=== PATIENT | female | born 1945 | race Two or more races ===

== ENCOUNTER 2021-06-07 13:20 | Inpatient (IN) | payer MEDICARE, OTHER ==
[~2021-06-07] VITALS: Ht 154.9 cm; Wt 90.9 kg
[2021-06-07] MEDS ORDERED: IV NS 0.9% 1,000 ML BAG IV ONE (14:00)
--- NOTE | 2021-06-07 14:00 | NUR ---
BIB [facility] AFTER SHE FELT DIZZY WHILE SHOPPING,C/O RIGHT ARM/SHOULDER PAIN 12/21. ALERT AND ORIENTED X4. DENIES SOB. RESPIRATION REGULAR AND UNLABORED. WILL CONTINUE TO MONITOR THE PATIENT.
[2021-06-07] MEDS ORDERED: FENTANYL PF 100MCG/2ML AMPUL IV ONE (14:30)
[2021-06-07] MEDS ORDERED: ACETAMINOPHEN ES 500 MG TABLET PO ONE (14:30)
[2021-06-07] MEDS ORDERED: FENTANYL PF 100MCG/2ML AMPUL ONE (14:31)
[2021-06-07 14:34] LABS: BASOPHILS % (AUTO) 0.5 % (0.0-2.0); EOSINOPHILS % (AUTO) 8.5 % (0.0-6.0); HEMATOCRIT 36 % (33-45); HEMOGLOBIN 12.2 g/dL (11.5-14.8); LYMPHOCYTES # (AUTO) 1.8 K/uL (0.8-4.8); LYMPHOCYTES % (AUTO) 22.6 % (20.0-44.0); MEAN CORPUSCULAR HGB CONC 34 g/dl (31.0-36.0); MEAN CORPUSCULAR VOLUME 96 fL (82-100); MONOCYTES # (AUTO) 0.6 K/uL (0.1-1.30); MONOCYTES % (AUTO) 7.1 % (2.0-12.0); NEUTROPHILS % (AUTO) 61.3 % (43.0-81.0); PLATELET COUNT (AUTO) 144 K/uL (150-450); RED BLOOD CELL COUNT(AUTO) 3.79 MIL/uL (4.0-5.2); WHITE BLOOD COUNT (AUTO) 8.1 K/uL (4.3-11.0)
[2021-06-07] MEDS ORDERED: ACETAMINOPHEN ES 500 MG TABLET ONE (14:35)
[2021-06-07 14:47] LABS: CALCIUM, SERUM 8.6 mg/dL (8.5-10.1); CARBON DIOXIDE 28 mmol/L (21-32); CHLORIDE 105 mmol/L (98-107); CREATININE 1.2 mg/dL (0.6-1.3); GLUCOSE 225 mg/dL (74-106); POTASSIUM 4.5 mmol/L (3.5-5.1); SODIUM SERUM 139 mmol/L (136-145); UREA NITROGEN, BLOOD 21 mg/dL (7-18)
--- NOTE | 2021-06-07 15:01 | NUR ---
DAUGHTER CALLED. LEFT CONTACT # [phone]
[2021-06-07 15:03] LABS: ALANINE AMINOTRANSFERASE 25 U/L (12-78); ALBUMIN 3.3 g/dL (3.4-5.0); ALKALINE PHOSPHATASE 51 U/L (46-116); ASPARTATE AMINOTRANSFERASE 18 U/L (15-37); BILIRUBIN,DIRECT 0.1 mg/dL (0.0-0.2); BILIRUBIN,TOTAL 0.4 mg/dL (0.2-1.0); TOTAL PROTEIN, SERUM 7.7 g/dL (6.4-8.2)
[2021-06-07] MEDS ORDERED: ALBU8.5H8 INH (15:08)
[2021-06-07] MEDS ORDERED: LORA10TA7 PO (15:08)
[2021-06-07] MEDS ORDERED: GABA-532 PO (15:08)
[2021-06-07] MEDS ORDERED: FLUT12AE5 INH (15:08)
[2021-06-07] MEDS ORDERED: SIMV-49 PO (15:08)
[2021-06-07] MEDS ORDERED: DOCU-270 PO (15:08)
[2021-06-07] MEDS ORDERED: ASPI-1420 PO (15:08)
[2021-06-07] MEDS ORDERED: FURO20TA4 PO (15:08)
[2021-06-07] MEDS ORDERED: POLY15DR40 EACHEYE (15:08)
[2021-06-07] MEDS ORDERED: INSU100I26 SQ (15:08)
[2021-06-07] MEDS ORDERED: LISI40TA13 PO (15:08)
[2021-06-07] MEDS ORDERED: INSU100I4 SQ (15:08)
[2021-06-07] MEDS ORDERED: CHLO25TA2 PO (15:08)
[2021-06-07] MEDS ORDERED: OMEP20CA15 PO (15:08)
[2021-06-07] MEDS ORDERED: MORPHINE SULFATE INJ 4 MG/ML DISP.SYRIN ONE (15:15)
[2021-06-07] MEDS ORDERED: MORPHINE SULFATE INJ 2 MG/ML DISP.SYRIN IV ONE (15:30)
--- NOTE | 2021-06-07 16:43 | NUR ---
COVID ANTIGEN SWAB DONE AND SENT TO THE LAB
[2021-06-07] MEDS ORDERED: ALBUTEROL SULFATE INH 18 GM HFA.AER.AD NEB PRN (18:00)
[2021-06-07] MEDS ORDERED: LORATADINE 10 MG TABLET PO PRN (18:00)
[2021-06-07] MEDS ORDERED: DEXTROSE 50%-WATER 50 ML DISP.SYRIN IV PRN (18:00)
[2021-06-07] MEDS ORDERED: hydrALAZINE HCL IV 20 MG VIAL IV PRN (18:00)
[2021-06-07] MEDS ORDERED: POLYVINYL ALCOHOL 15 ML BOTTLE EACHEYE PRN (18:00)
[2021-06-07] MEDS ORDERED: ONDANSETRON HCL/PF 4 MG/2 ML VIAL IVP PRN (18:00)
[2021-06-07] MEDS ORDERED: Z GUARD REMEDY 4 OZ OINT TP PRN (18:00)
[2021-06-07] MEDS ORDERED: *INSULIN REGULAR(HUMULIN R)HUM 100 UNIT/ML VIAL SQ PRN (18:00)
[2021-06-07] MEDS ORDERED: INSULIN REGULAR, HUMAN 100 UNIT/ML 3 ML VIAL SQ PRN (18:00)
[2021-06-07] MEDS ORDERED: INSULIN GLARGINE,BASAGLAR 100 UNIT/ML INSULN.PEN SQ SCH (18:00)
--- NOTE | 2021-06-07 19:06 | NUR ---
report given to nurse Mitchell for gregor
[2021-06-07] MEDS: IV NS 0.9% 1,000 ML IV PRN (19:43)
--- NOTE | 2021-06-07 19:49 | NUR ---
TAKEN TO CT
[2021-06-07] MEDS ORDERED: MORPHINE SULFATE INJ 2 MG/ML DISP.SYRIN ONE (19:50)
[2021-06-07] MEDS: MORPHINE SULFATE INJ 2 MG/ML DISP.SYRIN IV PRN (19:56)
--- NOTE | 2021-06-07 20:09 | NUR ---
RETURNED FROM CT
--- NOTE | 2021-06-07 21:14 | NUR ---
BED 907-1
--- NOTE | 2021-06-07 21:28 | NUR ---
us at bedside
--- NOTE | 2021-06-07 21:42 | NUR ---
attempted to give report, kept on hold
[2021-06-07] MEDS ORDERED: hydrALAZINE HCL IV 20 MG VIAL ONE (21:44)
[2021-06-07] MEDS ORDERED: GABAPENTIN 300 MG CAPSULE ONE (21:44)
[2021-06-07] MEDS ORDERED: ACETAMINOPHEN 325 MG TABLET ONE (21:44)
--- NOTE | 2021-06-07 21:48 | NUR ---
REPORT GIVEN TO INA
[2021-06-07] MEDS: ACETAMINOPHEN 325 MG TABLET PO PRN (21:55)
[2021-06-07] MEDS: GABAPENTIN 100 MG CAPSULE PO SCH (21:55)
[2021-06-07 22:15] VITALS: BP 167/59
[2021-06-07] MEDS: BLOOD SUGAR DIAGNOSTIC 1 EACH STRIP VI SCH (23:33)
[2021-06-08] VITALS (8 sets, daily range): BP systolic 112–170; BP diastolic 46–60
--- NOTE | 2021-06-08 01:00 | NUR ---
After admitting patient and changing linens, clothes etc. patient became nauseous and ended up vomiting x2, partially digested food. PRN Zofran given with some relief. Denies abdominal pain is not tender upon palpation, bowel sounds present.
--- NOTE | 2021-06-08 02:49 | NUR ---
SPORTS EQUIPMENT REPAIRER NOTE Patient is A&Ox4, japanese speaking but able to speak Guinean well. States that her only complaint at this moment is her R shoulder pain where fracture was found. Patient can move extremities evenly. Patient states she can usually walk for 5-10 minutes but doesn't know if she can get up due to pain in R shoulder. Will use bedpan for now, Lung sounds clear, bowel sounds present, Heart rate and rhythm regular, no edema. Only skin issues are abrasions to shay. knees. Patient placed on tele monitor. VSS. Oriented patient to unit protocols, bed controls, and call light. Will continue to monitor. Addendum: 06/08/21 at 0257 by DAVID SIGALA RN Patient arrived to unit at 2215 accompanied by 2 staff members.
[2021-06-08] MEDS: IV NS 0.9% 1,000 ML IV PRN ×2 (06:16→22:50)
--- NOTE | 2021-06-08 06:44 | NUR ---
Patient's emesis subsided and B/P back to WNL 122/56. Now feels good again except R shoulder pain when repositioning, but overall feeling better. Ns running at 75cc/hr to LFA #20G intact and patent. Has been SR on monitor overnight 80s, 90s.
[2021-06-08] MEDS: BLOOD SUGAR DIAGNOSTIC 1 EACH STRIP VI SCH (07:05)
--- NOTE | 2021-06-08 07:19 | NUR ---
JAVA WEB USER INTERFACE DEVELOPER OPENING NOTES: RECEIVED PATIENT ON BED, AWAKE, A/O X4, NO S/S OF DISTRESS NOTED. NO COMPLAIN OF PAIN OR DISCOMFORT AT THIS TIME. WITH ARM SLING ON THE RIGHT ARM. WITH IV ACCESS ON THE LEFT FA G 20 WITH NS RUNNING AT 75ML/HR. SAFETY MEASURES ENSURED WITH BED IN LOWEST AND LOCKED POSITION, SIDE RAILS RAISED. CALL LIGHT WITHIN REACH. WILL CONTINUE TO MONITOR PATIENT.
[2021-06-08 07:23] LABS: BASOPHILS % (AUTO) 0.2 % (0.0-2.0); EOSINOPHILS % (AUTO) 0.2 % (0.0-6.0); HEMATOCRIT 32 % (33-45); HEMOGLOBIN 10.9 g/dL (11.5-14.8); LYMPHOCYTES # (AUTO) 1.7 K/uL (0.8-4.8); LYMPHOCYTES % (AUTO) 18.2 % (20.0-44.0); MEAN CORPUSCULAR HGB CONC 34 g/dl (31.0-36.0); MEAN CORPUSCULAR VOLUME 95 fL (82-100); MONOCYTES # (AUTO) 0.6 K/uL (0.1-1.30); MONOCYTES % (AUTO) 5.9 % (2.0-12.0); NEUTROPHILS # (AUTO) 7.1 K/uL (1.8-8.9); NEUTROPHILS % (AUTO) 75.5 % (43.0-81.0); PLATELET COUNT (AUTO) 147 K/uL (150-450); RED BLOOD CELL COUNT(AUTO) 3.37 MIL/uL (4.0-5.2); WHITE BLOOD COUNT (AUTO) 9.4 K/uL (4.3-11.0)
[2021-06-08 07:36] LABS: ALBUMIN 2.7 g/dL (3.4-5.0); BILIRUBIN,TOTAL 0.3 mg/dL (0.2-1.0); CALCIUM, SERUM 7.9 mg/dL (8.5-10.1); CREATININE 1.1 mg/dL (0.6-1.3); MAGNESIUM 1.5 mg/dL (1.8-2.4); PHOSPHORUS 3.6 mg/dL (2.5-4.9); POTASSIUM 4.5 mmol/L (3.5-5.1); TOTAL PROTEIN, SERUM 6.8 g/dL (6.4-8.2)
[2021-06-08] MEDS: ASPIRIN EC 81 MG TABLET.DR PO SCH (08:53)
[2021-06-08] MEDS: DOCUSATE SODIUM 100 MG CAPSULE PO SCH (08:53)
[2021-06-08] MEDS: LISINOPRIL (20MG) 20 MG TABLET PO SCH (08:54)
[2021-06-08] MEDS: PANTOPRAZOLE 40 MG TABLET.DR PO SCH ×2 (08:54→17:31)
[2021-06-08] MEDS: MORPHINE SULFATE INJ 2 MG/ML DISP.SYRIN IV PRN ×2 (08:54→22:07)
[2021-06-08] MEDS ORDERED: Medication Not On Formulary EA (Chlorthalidone 25 MG) PO SCH (09:00)
[2021-06-08] MEDS ORDERED: FUROSEMIDE 20 MG TABLET PO SCH (09:00)
[2021-06-08 10:02] LABS: THYROID STIMULATING HORMONE 0.256 uIU/mL (0.358-3.74)
[2021-06-08] MEDS: CARVEDILOL 6.25 MG TABLET PO SCH ×2 (10:22→22:07)
[2021-06-08] MEDS: FLUTICASONE 110MCG 1 EA INHALER IH SCH ×2 (10:36→17:32)
[2021-06-08] MEDS: Magnesium 1GM/D5W 100ML PREMIX 100 ML IV SCH ×2 (13:00→14:00)
[2021-06-08] MEDS: BLOOD SUGAR DIAGNOSTIC 1 EACH STRIP IN SCH ×3 (13:46→22:23)
[2021-06-08] MEDS: INSULIN GLARGINE, 100 UNIT/ML CARTRIDGE SQ SCH (17:00)
[2021-06-08] MEDS: SIMVASTATIN 20 MG TABLET PO SCH (17:31)
--- NOTE | 2021-06-08 19:00 | NUR ---
DISCHARGE COORDINATOR CLOSING NOTES: PATIENT ON BED, AWAKE, A/O X4, NO S/S OF DISTRESS NOTED. NO COMPLAIN OF PAIN OR DISCOMFORT AT THIS TIME. WITH ARM SLING ON THE RIGHT ARM. WITH IV ACCESS ON THE LEFT FA G 20 WITH NS RUNNING AT 75ML/HR. PATIENT PATIENT CONSENT SIGNED BY DAUGHTER, AND ATTACHED TO CHART. NO COMPLAIN OF PAIN OR DISCOMFORT AT THIS TIME. SAFETY MEASURES ENSURED WITH BED IN LOWEST AND LOCKED POSITION, SIDE RAILS RAISED. CALL LIGHT WITHIN REACH. WILL ENDORSE PATIENT FOR CONTINUITY OF CARE.
--- NOTE | 2021-06-08 19:45 | NUR ---
VP RESEARCH OPENING NOTES RECEIVED PATIENT LAYING AWAKE IN BED. A/O X 4. PATIENT WITH REGULAR AND UNLABORED BREATHING ON ROOM AIR TOLERATED WELL. NO SIGNS AND SYMPTOMS OF DISTRESS NOTED AT THIS TIME. NO COMPLAINS OF PAIN OR DISCOMFORT AT THIS TIME. PATIENT ON TELE MONITOR READING SR @ 82 BPM. IV ACCESS LFA G #20 RUNNING NS @ 75 ML/HR. IV ACCESS PATENT AND INTACT. SAFETY PRECAUTIONS ENFORCED WITH BED LOCKED AND AT LOWEST POSITION. SIDERAILS UP X2. CALL LIGHT WITHIN REACH AT ALL TIMES. WILL CONTINUE TO MONITOR PATIENT.
[2021-06-08] MEDS: GABAPENTIN 100 MG CAPSULE PO SCH (22:07)
[2021-06-09] VITALS: BP 154/59
[2021-06-09 04:00] VITALS: BP 154/53
[2021-06-09] MEDS: BLOOD SUGAR DIAGNOSTIC 1 EACH STRIP IN SCH ×4 (06:30→22:03)
--- NOTE | 2021-06-09 06:57 | NUR ---
LINEMAN SERVICE OR WORK DISPATCHER CLOSING NOTES PATIENT STILL LAYING AWAKE IN BED. A/O X 4. PATIENT WITH REGULAR AND UNLABORED BREATHING ON ROOM AIR TOLERATED WELL. NO SIGNS AND SYMPTOMS OF DISTRESS NOTED AT THIS TIME. NO COMPLAINS OF PAIN OR DISCOMFORT AT THIS TIME. PATIENT ON TELE MONITOR READING SR @ 77 BPM. IV ACCESS LFA G #20 RUNNING NS @ 125 ML/HR. IV ACCESS PATENT AND INTACT. SAFETY PRECAUTIONS ENFORCED WITH BED LOCKED AND AT LOWEST POSITION. SIDERAILS UP X2. CALL LIGHT WITHIN REACH AT ALL TIMES. WILL ENDORSE CONTINUITY OF CARE TO DAY SHIFT NURSE.
--- NOTE | 2021-06-09 07:30 | NUR ---
MARGARINE MAKER OPENING NOTES RECEIVED PATIENT AWAKE IN BED. A/O X 4. PATIENT WITH REGULAR AND UNLABORED BREATHING ON ROOM AIR TOLERATED WELL. NO SIGNS AND SYMPTOMS OF ACUTE DISTRESS NOTED AT THIS TIME. NO COMPLAINS OF PAIN OR DISCOMFORT AT THIS TIME. PATIENT ON TELE MONITOR READING SR @ 80'S. IV ACCESS LFA G #20 RUNNING NS @ 125 ML/HR. IV ACCESS PATENT AND INTACT. REINFORCED NPO. SAFETY PRECAUTIONS ENFORCED WITH BED LOCKED AND AT LOWEST POSITION. SIDE RAILS UP X2. CALL LIGHT WITHIN REACH AT ALL TIMES. WILL CONTINUE TO MONITOR PATIENT ACCORDINGLY.
[2021-06-09 07:41] LABS: BASOPHILS % (AUTO) 0.4 % (0.0-2.0); EOSINOPHILS % (AUTO) 2.4 % (0.0-6.0); HEMATOCRIT 35 % (33-45); HEMOGLOBIN 11.8 g/dL (11.5-14.8); LYMPHOCYTES # (AUTO) 1.7 K/uL (0.8-4.8); LYMPHOCYTES % (AUTO) 18.7 % (20.0-44.0); MEAN CORPUSCULAR HGB CONC 34 g/dl (31.0-36.0); MEAN CORPUSCULAR VOLUME 95 fL (82-100); MONOCYTES # (AUTO) 0.7 K/uL (0.1-1.30); MONOCYTES % (AUTO) 7.7 % (2.0-12.0); NEUTROPHILS # (AUTO) 6.4 K/uL (1.8-8.9); NEUTROPHILS % (AUTO) 70.8 % (43.0-81.0); PLATELET COUNT (AUTO) 130 K/uL (150-450); RED BLOOD CELL COUNT(AUTO) 3.66 MIL/uL (4.0-5.2)
[2021-06-09 08:00] VITALS: BP 170/58
[2021-06-09] MEDS: LISINOPRIL (20MG) 20 MG TABLET PO SCH (08:12)
[2021-06-09] MEDS: DOCUSATE SODIUM 100 MG CAPSULE PO SCH (08:12)
[2021-06-09] MEDS: CARVEDILOL 6.25 MG TABLET PO SCH ×3 (08:12→22:08)
[2021-06-09] MEDS: ASPIRIN EC 81 MG TABLET.DR PO SCH (08:12)
[2021-06-09 08:13] LABS: ALBUMIN 2.7 g/dL (3.4-5.0); BILIRUBIN,TOTAL 0.4 mg/dL (0.2-1.0); CALCIUM, SERUM 8.2 mg/dL (8.5-10.1); CREATININE 1.1 mg/dL (0.6-1.3); MAGNESIUM 1.8 mg/dL (1.8-2.4); PHOSPHORUS 2.5 mg/dL (2.5-4.9); POTASSIUM 4.4 mmol/L (3.5-5.1)
[2021-06-09] MEDS: PANTOPRAZOLE 40 MG TABLET.DR PO SCH ×2 (08:13→16:53)
[2021-06-09] MEDS: INSULIN GLARGINE, 100 UNIT/ML CARTRIDGE SQ SCH ×2 (08:13→16:49)
[2021-06-09] MEDS: FLUTICASONE/VILANTEROL 1 EACH BLST.W.DEV IH SCH (09:02)
[2021-06-09] MEDS ORDERED: HYDROMORPHONE INJ 2 MG/ML DISP.SYRIN ONE (09:27)
[2021-06-09] MEDS ORDERED: ROCURONIUM BROMIDE 50 MG/5 ML ONE ×2 (09:27→10:27)
[2021-06-09] MEDS ORDERED: TRANEXAMIC ACID 3,000 MG in SODIUM CHLORIDE IRRIG SOLUTION 70 ML IR ONE (09:30)
--- NOTE | 2021-06-09 09:30 | NUR ---
RN NOTES PATIENT WAS PICKED UP BY O.R STAFF. LEFT UNIT IN STABLE CONDITION.
[2021-06-09] MEDS ORDERED: VANCOMYCIN 1 GM VIAL ONE (09:49)
[2021-06-09] MEDS ORDERED: BUPIVACAINE 0.25% 75 MG/30 ML VIAL ONE (09:49)
[2021-06-09] MEDS ORDERED: POLYMYXIN B SULFATE 500,000 UNITS ONE (09:49)
[2021-06-09] MEDS ORDERED: HYDROGEN PEROXIDE 480 ML BOTTLE ONE (10:16)
[2021-06-09] MEDS ORDERED: HEMOSTATIC MATRIX 8 ML 1 EACH PAD MC ONE (11:33)
[2021-06-09] MEDS ORDERED: DESFLURANE 240 ML BOTTLE IH ONE (12:51)
[2021-06-09] MEDS ORDERED: LABETALOL HCL IV 100MG VIAL ONE (14:29)
[2021-06-09] MEDS ORDERED: HYDROCODONE/APAP 5/325MG TABLET PO PRN (14:30)
[2021-06-09] MEDS ORDERED: SENNOSIDES 8.6 MG TABLET PO PRN (15:00)
[2021-06-09] MEDS ORDERED: DOCUSATE SODIUM 250 MG CAPSULE PO PRN (15:00)
[2021-06-09] MEDS ORDERED: ACETAMINOPHEN 325 MG TABLET PO PRN (15:00)
--- NOTE | 2021-06-09 15:15 | NUR ---
RN NOTES RECEIVED PATIENT FROM RECOVERY ROOM. PATIENT IS ASLEEP, EASILY AWAKEN BY VERBAL AND TACTILE STIMULI. NOTED WITH DRY AND INTACT DRESSING ON RIGHT UPPER SHOULDER, ICE PACK ON IT NOTED. RIGHT ARM SUPPORTED WITH ARM SLING. ON TELE MONITOR READING SHOWING SINUS 86. IV ACCESS ON LFA ONGOING NS @125 CC/HR, INFUSING WELL, NO S/SX OF INFILTRATION NOTED. VITAL SIGNS TAKEN AND RECORDED. SAFETY PRECAUTIONS IN PLACE: BED ON LOWEST LOCKED POSITION. SIDE RAILS UP X 2. CALL LIGHT WITHIN EASY REACH. WILL CONTINUE TO MONITOR ACCORDINGLY.
[2021-06-09] MEDS: SOD FERRIC GLUC 125 MG in IV NS 0.9% 100 ML IV SCH (16:10)
[2021-06-09] MEDS: INSULIN REGULAR, HUMAN 100 UNIT/ML 3 ML VIAL SQ PRN (16:49)
[2021-06-09] MEDS: HYDROCODONE/APAP 5/325MG TABLET PO PRN (18:09)
[2021-06-09] MEDS: SIMVASTATIN 20 MG TABLET PO SCH (18:09)
[2021-06-09] MEDS: ANCEF 1 GM/50 ML D5W IV SCH (18:15)
--- NOTE | 2021-06-09 18:59 | NUR ---
SILICATOR CLOSING NOTES PATIENT AWAKE IN BED. A/O X 4. PATIENT WITH REGULAR AND UNLABORED BREATHING ON ROOM AIR TOLERATED WELL. NO SIGNS AND SYMPTOMS OF ACUTE DISTRESS NOTED AT THIS TIME. NO COMPLAINS OF PAIN OR DISCOMFORT AT THIS TIME. PATIENT ON TELE MONITOR READING SR @ 70'S. IV ACCESS LFA G #20 RUNNING NS @ 125 ML/HR. IV ACCESS PATENT AND INTACT. SAFETY PRECAUTIONS ENFORCED WITH BED LOCKED AND AT LOWEST POSITION. SIDE RAILS UP X2. CALL LIGHT WITHIN REACH AT ALL TIMES. ALL NEEDS ATTENDED AND MET, DUE MEDS GIVEN ORDERED. PAIN MANAGED BY PAIN MEDICATION DURING THE SHIFT. WILL ENDORSE TO ONCOMING SHIFT FOR MYA.
--- NOTE | 2021-06-09 19:20 | NUR ---
MANAGER REIMBURSEMENT OPENING NOTES RECEIVED PATIENT ASLEEP IN BED. AWAKEN EASILY. PATIENT WITH REGULAR AND UNLABORED BREATHING ON ROOM AIR TOLERATED WELL. NO SIGNS AND SYMPTOMS OF ACUTE DISTRESS NOTED AT THIS TIME. NO COMPLAINS OF PAIN OR DISCOMFORT AT THIS TIME. PATIENT ON TELE MONITOR READING SR @ 80'S. IV ACCESS LFA G #20 RUNNING NS @ 125 ML/HR. IV ACCESS PATENT AND INTACT. SAFETY PRECAUTIONS ENFORCED WITH BED LOCKED AND AT LOWEST POSITION. SIDE RAILS UP X2. CALL LIGHT WITHIN REACH AT ALL TIMES. WILL CONTINUE TO MONITOR PATIENT ACCORDINGLY.
[2021-06-09 20:00] VITALS: BP 127/48
[2021-06-09] MEDS: GABAPENTIN 100 MG CAPSULE PO SCH ×2 (22:00→22:08)
--- NOTE | 2021-06-09 22:00 | NUR ---
MS RN NOTES: MEDICATION REFUSAL PATIENT REFUSED SCHEDULED MEDS COREG AND NEURONTIN AT 2200. DESPITE OF EXPLANATION PROVIDED REGARDING MEDICATION COMPLIANCE. PATIENT CONTINUED TO REFUSE. OFFERED X3. WILL CONTINUE TO MONITOR.
[2021-06-09] MEDS: *INSULIN REGULAR(HUMULIN R)HUM 100 UNIT/ML VIAL SQ PRN (22:20)
[2021-06-09] MEDS: ACETAMINOPHEN 325 MG TABLET PO PRN (23:15)
--- NOTE | 2021-06-09 23:15 | NUR ---
RN MS NOTES PATIENT C/O PAIN ON HER RIGHT SHOULDER. PRN ACETAMINOPHEN 650MG PO GIVEN. PATIENT SPITTED OUT MED. WILL CONTINUE TO MONITOR.
--- NOTE | 2021-06-09 23:28 | NUR ---
MS RN NOTES PATIENT C/O RIGHT SHOULDER PAIN ON A PAIN SCALE OF 9/10. SPOKE WITH ASSOCIATE PROFESSOR OF THEATRE ALEAH CLARIFIED MORPHINE SULFATE INJ 2MG/ML IVP IF WE CAN CONTINUE THIS ORDER PRE-OP PRN PAIN MED SINCE PATIENT SPITTED OUT PO MEDS. PER ASSOCIATE PROFESSOR OF THEATRE ALEAH IT IS OK TO GIVE. CHARGE NURSE AWARE.
[2021-06-09] MEDS: MORPHINE SULFATE INJ 2 MG/ML DISP.SYRIN IV PRN (23:31)
[2021-06-10] VITALS: BP 136/52
[2021-06-10] MEDS: ANCEF 1 GM/50 ML D5W IV SCH (02:07)
[2021-06-10 04:00] VITALS: BP 150/60
--- NOTE | 2021-06-10 05:56 | NUR ---
MS RN NOTES PAGED EPIC OUMAR BULLARD NOTIFIED OF PATIENT'S CURRENT BEHAVIOR. PATIENT IS VERY ANXIOUS ATTEMPTED TO GET OUT OF BED. PATIENT PULLED OUT IV ACCESS X2. OUMAR BULLARD ORDERED FOR 1:1 SITTER FOR PATIENT'S SAFETY AND MIDLINE. WILL ENDORSE TO AM SHIFT NURSE. 0600 - STATED NEW IV LINES ON LEFT FOREARM GAUGE #20 PATENT AND INTACT. NO S/SX OF INFILTRATION NOTED. Addendum: 06/10/21 at 0639 by MARY MENON RN PER OUMAR BULLARD OK TO USE MIDLINE.
[2021-06-10] MEDS: MORPHINE SULFATE INJ 2 MG/ML DISP.SYRIN IV PRN ×4 (06:22→20:29)
[2021-06-10] MEDS: IV NS 0.9% 1,000 ML IV PRN ×2 (06:37→14:45)
[2021-06-10] MEDS: INSULIN REGULAR, HUMAN 100 UNIT/ML 3 ML VIAL SQ PRN ×2 (06:48→17:21)
--- NOTE | 2021-06-10 07:12 | NUR ---
DATA CENTER OPERATOR OPENING NOTES PATIENT AWAKE IN BED. A/O X 4. PATIENT WITH REGULAR AND UNLABORED BREATHING ON ROOM AIR TOLERATED WELL. NO SIGNS AND SYMPTOMS OF ACUTE DISTRESS NOTED AT THIS TIME. NO COMPLAINS OF PAIN OR DISCOMFORT AT THIS TIME. PATIENT ON TELE MONITOR READING SR @ 90'S WITH BBB. IV ACCESS LFA G #20 RUNNING NS @ 125 ML/HR. IV ACCESS PATENT AND INTACT. WITH DRY AND INTACT DRESSING OVER RIGHT SHOULDER. SAFETY PRECAUTIONS ENFORCED WITH BED LOCKED AND AT LOWEST POSITION. SIDE RAILS UP X2. CALL LIGHT WITHIN REACH AT ALL TIMES. WILL CONTINUE TO MONITOR ACCORDINGLY.
[2021-06-10 08:00] VITALS: BP 165/78
[2021-06-10] MEDS: BLOOD SUGAR DIAGNOSTIC 1 EACH STRIP IN SCH ×4 (08:01→22:27)
[2021-06-10] MEDS: ACETAMINOPHEN 325 MG TABLET PO PRN (08:05)
[2021-06-10] MEDS: PANTOPRAZOLE 40 MG TABLET.DR PO SCH ×2 (08:36→16:59)
[2021-06-10] MEDS: ASPIRIN EC 81 MG TABLET.DR PO SCH (08:36)
[2021-06-10] MEDS: DOCUSATE SODIUM 100 MG CAPSULE PO SCH (08:36)
[2021-06-10] MEDS: CARVEDILOL 6.25 MG TABLET PO SCH ×2 (08:37→21:53)
[2021-06-10] MEDS: FLUTICASONE/VILANTEROL 1 EACH BLST.W.DEV IH SCH (08:38)
[2021-06-10] MEDS: LISINOPRIL (20MG) 20 MG TABLET PO SCH (08:38)
[2021-06-10] MEDS: INSULIN GLARGINE, 100 UNIT/ML CARTRIDGE SQ SCH (08:40)
--- NOTE | 2021-06-10 08:49 | NUR ---
RN NOTES LANTUS 60 UNITS GIVEN ORDERED.
[2021-06-10] MEDS ORDERED: INSULIN GLARGINE, 100 UNIT/ML CARTRIDGE SQ SCH ×3 (09:00→22:00)
[2021-06-10 10:07] LABS: *SPE A/G RATIO 0.8 (0.7-1.7); *SPE ALPHA-1-GLOBULIN 0.2 g/dL (0.0-0.4); *SPE ALPHA-2-GLOBULIN 0.9 g/dL (0.4-1.0); *SPE BETA GLOBULIN 1.1 g/dL (0.7-1.3); *SPE M-SPIKE Not Observed g/dL (Not Observed)
[2021-06-10] MEDS: ENOXAPARIN SODIUM 40 MG/0.4 ML DISP.SYRIN SQ SCH (11:31)
[2021-06-10] MEDS: LORAZEPAM 1 MG TABLET PO PRN ×2 (11:31→17:08)
[2021-06-10] MEDS: GABAPENTIN 300 MG CAPSULE PO SCH ×2 (12:37→16:59)
[2021-06-10] MEDS: SOD FERRIC GLUC 125 MG in IV NS 0.9% 100 ML IV SCH (14:45)
[2021-06-10] MEDS: SIMVASTATIN 20 MG TABLET PO SCH (17:09)
--- NOTE | 2021-06-10 19:08 | NUR ---
RN CLOSING NOTES PATIENT AWAKE IN BED. A/O X 4. PATIENT WITH REGULAR AND UNLABORED BREATHING ON ROOM AIR TOLERATED WELL. NO SIGNS AND SYMPTOMS OF ACUTE DISTRESS NOTED AT THIS TIME. NO COMPLAINS OF PAIN OR DISCOMFORT AT THIS TIME. PATIENT ON TELE MONITOR READING SR @ 90'S WITH BBB. IV ACCESS LFA G #20 RUNNING NS @ 125 ML/HR. IV ACCESS PATENT AND INTACT. WITH DRY AND INTACT DRESSING OVER RIGHT SHOULDER. PAIN MANAGED BY PAIN MEDICATION ORDERED DURING THE SHIFT. SAFETY PRECAUTIONS ENFORCED WITH BED LOCKED AND AT LOWEST POSITION. SIDE RAILS UP X2. CALL LIGHT WITHIN REACH AT ALL TIMES. ENDORSED TO GRAIN OILSEED OR PASTURE GROWER NURSE FOR MYA.
--- NOTE | 2021-06-10 19:30 | NUR ---
MS RN OPENING NOTE RECEIVED PATIENT IN BED WITH EYES CLOSED, EASY TO AROUSED. NO S/S OF APPARENT DISTRESS ON 2LPM OF VIA NC. NS RUNNING AT 125ML/HR AT THIS TIME. ON L. FA. PATIENT NOTED TO HAVE R. SHOULDER DRESSING -- DRY AND INTACT-- BRUISING AND SWELLING OF R. SHOULDER. SAFETY IN PLACE. WILL CONTINUE WITH PLAN OF CARE FOR PATIENT.
[2021-06-10 20:00] VITALS: BP 148/80
--- NOTE | 2021-06-10 22:28 | NUR ---
MS RN NOTE INSULIN LANTUS HELD. 60 UNITS. BLOOD SUGAR 106. PATIENT NOT EATING THAT MUCH.
[2021-06-11] MEDS: LORAZEPAM 1 MG TABLET PO PRN ×2 (02:58→13:50)
[2021-06-11] MEDS: MORPHINE SULFATE INJ 2 MG/ML DISP.SYRIN IV PRN ×3 (04:00→23:50)
[2021-06-11] MEDS: IV NS 0.9% 1,000 ML IV PRN ×2 (04:58→23:38)
--- NOTE | 2021-06-11 07:00 | NUR ---
MS RN OPENING NOTE RECEIVED PATIENT IN BED WITH EYES CLOSED, EASY TO AROUSE, A/O X 1. NO S/S OF APPARENT DISTRESS ON 2LPM OF VIA NC. IV FLUIDS NOT RUNNING AT THIS TIME DUE TO D/C ORDER FROM MD. PATIENT NOTED TO HAVE R. SHOULDER DRESSING -- DRY AND INTACT-- BRUISING AND SWELLING OF R. SHOULDER. SAFETY IN PLACE, BED IN LOWEST LOCKED POSITION AND SIDE RAILS UP X 3. WILL CONTINUE WITH PLAN OF CARE FOR PATIENT.
[2021-06-11] MEDS: BLOOD SUGAR DIAGNOSTIC 1 EACH STRIP IN SCH ×4 (07:14→22:48)
[2021-06-11] MEDS: INSULIN REGULAR, HUMAN 100 UNIT/ML 3 ML VIAL SQ PRN ×3 (07:15→18:15)
--- NOTE | 2021-06-11 07:16 | NUR ---
MS RN NOTE BLOOD SUGAR 96. NO COVERAGE NEEDED.
--- NOTE | 2021-06-11 07:59 | NUR ---
MS CLOSING RN NOTE REPORT GIVEN TO BEN FOR CONTINUITY OF CARE. NO SIGNIFICANT CHANGE FROM LAST ENDORSEMENT.
[2021-06-11] MEDS ORDERED: ASPI-869 PO (08:05)
[2021-06-11 08:41] VITALS: BP 133/60
[2021-06-11] MEDS: ENOXAPARIN SODIUM 40 MG/0.4 ML DISP.SYRIN SQ SCH (08:55)
[2021-06-11] MEDS: GABAPENTIN 300 MG CAPSULE PO SCH ×4 (08:56→17:00)
[2021-06-11] MEDS: CARVEDILOL 6.25 MG TABLET PO SCH ×2 (08:57→22:13)
[2021-06-11] MEDS: DOCUSATE SODIUM 100 MG CAPSULE PO SCH (08:58)
[2021-06-11] MEDS: ASPIRIN EC 81 MG TABLET.DR PO SCH (08:58)
[2021-06-11] MEDS ORDERED: INSULIN GLARGINE, 100 UNIT/ML CARTRIDGE SQ SCH (09:00)
[2021-06-11] MEDS: FLUTICASONE/VILANTEROL 1 EACH BLST.W.DEV IH SCH (09:01)
[2021-06-11] MEDS: PANTOPRAZOLE 40 MG TABLET.DR PO SCH ×3 (09:09→17:00)
[2021-06-11] MEDS: LISINOPRIL (20MG) 20 MG TABLET PO SCH (09:10)
[2021-06-11] MEDS ORDERED: CEFTRIAXONE 1 G VIAL IM SCH (10:00)
--- NOTE | 2021-06-11 11:41 | NUR ---
RN NOTES URINE SPECIMEN COLLECTED FOR URINALYSIS. CALLED LAB TO PICK-UP SPECIMEN
[2021-06-11] MEDS ORDERED: CEFTRIAXONE 2 G in IV D5W 100 ML IV SCH (13:00)
--- NOTE | 2021-06-11 13:50 | NUR ---
RN NOTES PATIENT RESTLESS, TURNING IN BED AND ATTEMPTING TO PULL OUT IV LINE, PRN ATIVAN 1 MG ORAL TAB GIVEN AT 1350.
[2021-06-11 14:38] LABS: BILIRUBIN,URINE NEGATIVE (NEGATIVE); COLOR,URINE YELLOW (YELLOW); LEUKOCYTE ESTERASE ,URINE NEGATIVE (NEGATIVE); NITRITE, URINE NEGATIVE (NEGATIVE); PROTEIN,URINE 100 mg/dl (NEGATIVE); UGLUCOSE 100 MG/DL mg/dL (NEGATIVE); UROBILINOGEN,URINE 0.2 EU/dL (0.2)
--- NOTE | 2021-06-11 14:44 | NUR ---
RN NOTES PT NOTED GRIMACING, RESTLESS, MOANING AND C/O PAIN ON RIGHT SHOULDER. PT UN-ABLE TO SAY SCALE BUT VERBALIZED THAT IT'S VERY PAINFUL. PRN MORPHINE 4MG IVP ADMINISTERED AT 1440. WILL CONTINUE TO MONITOR AND REASSESS PT.
[2021-06-11 15:01] LABS: BACTERIA,URINE Few /HPF (None Seen); SQUAMOUS EPITHELIAL CELL,UR Few /HPF (None Seen); WBC,URINE 0-2 /HPF (0-3)
[2021-06-11] MEDS: SOD FERRIC GLUC 125 MG in IV NS 0.9% 100 ML IV SCH (15:07)
--- NOTE | 2021-06-11 15:17 | NUR ---
RN NOTES PATIENT WAS RESTLESS, TURNING IN BED AND ATTEMPTING TO PULL OUT IV LINE PRN ATIVAN GIVEN AT 1350.
[2021-06-11] MEDS: DEXTROSE 50%-WATER 50 ML DISP.SYRIN IV PRN ×2 (17:42→18:22)
[2021-06-11] MEDS: SIMVASTATIN 20 MG TABLET PO SCH (17:55)
--- NOTE | 2021-06-11 18:10 | NUR ---
RN NOTES PT NOTED WITH ACCU-CHECK OF 32MG/DL, RE-CHECKED AND WAS 27MG/DL. PT IS ALERT AND CALM AT THIS TIME. D50 ADMINISTERED ORDERED, LATEST ACCU-CHECK 137MG/DL. MD MADE AWARE WITH ORDER TO DECREASE LANTUS MORNING DOSE-(9AM) FROM 100 UNITS TO 60 UNITS. WILL CONTINUE TO MONITOR PT.
--- NOTE | 2021-06-11 18:27 | NUR ---
RN NOTES RECEIVED ORDER FROM DR KOCH TO ADMINISTER ANOTHER D50% IVP AND TO HOLD LANTUS INSULIN 60 UNITS BID IF BS <180 MG/DL. WILL ENDORSE.
--- NOTE | 2021-06-11 18:42 | NUR ---
RN CLOSING NOTES PATIENT ALERT, RESTING SEMI-FOWLERS IN BED AT THIS TIME. EYES CLOSED, EASILY AROUSABLE TO A/O X 4. PATIENT BREATHING ROOM AIR WITH NO SIGNS/SYMPTOMS OF RESPIRATORY DISTRESS AT THIS TIME. NO COMPLAINTS OF PAIN OR DISCOMFORT. PATIENT RECEIVING NS @ 125 ML/HR THROUGH RIGHT 22G IV IN FOREARM. NO S/S OF INFECTION OR INFILTRATION AT IV SITE. DRY AND INTACT DRESSING PRESENT ON RIGHT SHOULDER. SAFETY PRECAUTIONS ENFORCED WITH BED LOCKED AND AT LOWEST POSITION. SIDE RAILS UP X2. CALL LIGHT WITHIN REACH AT ALL TIMES. WILL ENDORSE TO CHIEF UNIT FORESTER FOR MYA.
[2021-06-11 20:00] VITALS: BP 115/51
--- NOTE | 2021-06-12 07:14 | NUR ---
RESTORATIVE ART EMBALMER OPENING NOTES: RECEIVED PATIENT ON BED, AWAKE, A/O X1, NO S/S OF DISTRESS NOTED. NO COMPLAIN OF PAIN OR DISCOMFORT AT THIS TIME. WITH SURGICAL WOUND ON RIGHT SHOULDER COVERED WITH DRESSING, DRY AND INTACT. WITH IV ACCESS ON THE LEFT HAND G 24,PATENT AND INTACT ON SALINE LOCK. SAFETY MEASURES ENSURED WITH BED IN LOWEST AND LOCKED POSITION, SIDE RAILS RAISED. CALL LIGHT WITHIN REACH. WILL CONTINUE TO MONITOR PATIENT.
[2021-06-12] MEDS: DEXTROSE 50%-WATER 50 ML DISP.SYRIN IV PRN (07:44)
--- NOTE | 2021-06-12 07:45 | NUR ---
MS RN NOTE PATIENT NOTED WITH BS OF 26, PATIENT GIVEN DEXTROSE INJ 50 ML AND ORANGE JUICE. ENDORSED TO DAY SHIFT NURSE FOR CONTINUITY OF CARE
[2021-06-12] MEDS: BLOOD SUGAR DIAGNOSTIC 1 EACH STRIP IN SCH ×4 (08:00→23:13)
--- NOTE | 2021-06-12 08:00 | NUR ---
BUYERS' AGENT NOTE BLOOD SUGAR RE-CHECKED AFTER D50 ADMINISTRATION. LATEST BS 161 MG/DL. PATIENT REORIENTED. PATIENT NOW A/O X 3. WILL CONTINUE TO MONITOR PATIENT.
--- NOTE | 2021-06-12 08:08 | NUR ---
MS RN CLOSING NOTE PATIENT ALERT/ORIENTED X 1-2, PT SLEPT MOST OF THE NIGHT AND WAS MORE ALERT THE NIGHT WENT ON. PT STABLE ON 2 L OF OXYGEN VIA NC, NO S/S OF DISTRESS OR SOB NOTED, BREATHING EVEN AND UNLABORED. PATIENT PULLED OUT IV ACCESS TWICE, NOW HAS RIGHT HAND IV #24G INTACT AND FLUSHING WELL. MEDICATIONS GIVEN ORDERED, PT NEEDS MET THROUGHOUT SHIFT. NO INSULIN GIVEN @ 2200 FOR BS OF 138 BECAUSE PATIENT WAS REFUSING PO INTAKE. SAFETY MEASURES IN PLACE: CALL LIGHT WITHIN REACH, SIDE RAILS UP X 2, BED LOCKED IN LOW POSITION, BED ALARM ON, ENDORSED TO DAY SHIFT NURSE FOR CONTINUITY OF CARE
[2021-06-12 08:36] VITALS: BP 168/66
[2021-06-12] MEDS ORDERED: INSULIN GLARGINE, 100 UNIT/ML CARTRIDGE SQ SCH ×2 (09:00)
[2021-06-12] MEDS ORDERED: DEXTROSE 50%-WATER 50 ML DISP.SYRIN IV ONE (10:00)
[2021-06-12] MEDS: ENOXAPARIN SODIUM 40 MG/0.4 ML DISP.SYRIN SQ SCH (10:18)
[2021-06-12] MEDS: ASPIRIN EC 81 MG TABLET.DR PO SCH (10:19)
[2021-06-12] MEDS: GABAPENTIN 300 MG CAPSULE PO SCH ×3 (10:19→17:33)
[2021-06-12] MEDS: PANTOPRAZOLE 40 MG TABLET.DR PO SCH ×2 (10:19→17:33)
[2021-06-12] MEDS: CARVEDILOL 6.25 MG TABLET PO SCH ×2 (10:19→21:08)
[2021-06-12] MEDS: DOCUSATE SODIUM 100 MG CAPSULE PO SCH (10:19)
[2021-06-12] MEDS: LISINOPRIL (20MG) 20 MG TABLET PO SCH (10:20)
[2021-06-12] MEDS: FLUTICASONE/VILANTEROL 1 EACH BLST.W.DEV IH SCH (10:48)
[2021-06-12] MEDS: IV D5/0.45 NACL 1,000 ML IV SCH ×2 (10:49→20:56)
[2021-06-12] MEDS: ANCEF 1 GM/50 ML D5W IV SCH ×2 (13:10→21:07)
[2021-06-12 16:06] VITALS: BP 115/44
[2021-06-12] MEDS: SOD FERRIC GLUC 125 MG in IV NS 0.9% 100 ML IV SCH (16:09)
[2021-06-12] MEDS: GLUCERNA SHAKE 237 ML CAN PO SCH (17:00)
[2021-06-12] MEDS: SIMVASTATIN 20 MG TABLET PO SCH (17:33)
--- NOTE | 2021-06-12 19:00 | NUR ---
CONTINUITY READER CLOSING NOTES: PATIENT ON BED, AWAKE, A/O X1, NO S/S OF DISTRESS NOTED. NO COMPLAIN OF PAIN OR DISCOMFORT AT THIS TIME. WITH SURGICAL WOUND ON RIGHT SHOULDER COVERED WITH DRESSING, DRY AND INTACT. WITH IV ACCESS ON THE LEFT HAND G 24,PATENT AND INTACT ON SALINE LOCK. SAFETY MEASURES ENSURED WITH BED IN LOWEST AND LOCKED POSITION, SIDE RAILS RAISED. CALL LIGHT WITHIN REACH. WILL ENDORSE TO NEXT SHIFT FIR CONTINUITY OF CARE.
[2021-06-12 20:00] VITALS: BP 119/45
--- NOTE | 2021-06-12 22:30 | NUR ---
MS RN NOTE PATIENT'S BLOOD SUGAR 157, DID NOT GIVE INSULIN BECAUSE PATIENT HAS BEEN HYPOGLYCEMIC. PATIENT DID NOT WANT TO EAT A SNACK OR DRINK JUICE BECAUSE SHE SAID SHE WAS TOO FULL AND ALREADY ATE. PT ALSO REQUESTED TO DISCONNECT IVF D51/2NS BECAUSE IT KEEPS BEEPING EVERY TIME SHE MOVES AND IT DOESN'T LET HER SLEEP. WILL CONTINUE TO MONITOR PATIENT
[2021-06-13] MEDS: ANCEF 1 GM/50 ML D5W IV SCH ×3 (04:50→20:56)
[2021-06-13] MEDS: HYDROCODONE/APAP 5/325MG TABLET PO PRN (05:59)
[2021-06-13] MEDS: IV D5/0.45 NACL 1,000 ML IV SCH (06:15)
--- NOTE | 2021-06-13 06:32 | NUR ---
MS RN NOTE PT IV NOT FLUSHING, PT HAND SWOLLEN SO IV ACCESS REMOVED. ATTEMPTED TO INSERT NEW IV, WELL ANOTHER NURSE BUT UNSUCCESSFUL, PT IS HARDSTICK. DOSE OF ANCEF NOT FINISHED BECAUSE NO IV ACCESS. WILL ENDORSE TO DAY SHIFT NURSE PER CHARGE NURSE
[2021-06-13] MEDS: BLOOD SUGAR DIAGNOSTIC 1 EACH STRIP IN SCH ×4 (07:08→21:11)
[2021-06-13 07:12] LABS: BASOPHILS % (AUTO) 0.3 % (0.0-2.0); EOSINOPHILS % (AUTO) 3.5 % (0.0-6.0); HEMATOCRIT 25 % (33-45); HEMOGLOBIN 8.4 g/dL (11.5-14.8); LYMPHOCYTES # (AUTO) 1.7 K/uL (0.8-4.8); LYMPHOCYTES % (AUTO) 23.1 % (20.0-44.0); MEAN CORPUSCULAR HGB CONC 34 g/dl (31.0-36.0); MEAN CORPUSCULAR VOLUME 97 fL (82-100); MONOCYTES # (AUTO) 0.7 K/uL (0.1-1.30); MONOCYTES % (AUTO) 9.2 % (2.0-12.0); NEUTROPHILS # (AUTO) 4.8 K/uL (1.8-8.9); NEUTROPHILS % (AUTO) 63.9 % (43.0-81.0); PLATELET COUNT (AUTO) 130 K/uL (150-450); RED BLOOD CELL COUNT(AUTO) 2.56 MIL/uL (4.0-5.2); WHITE BLOOD COUNT (AUTO) 7.4 K/uL (4.3-11.0)
--- NOTE | 2021-06-13 07:21 | NUR ---
MS RN OPENING NOTES: RECEIVED PATIENT IN BED, AWAKE, A/O X3, NO S/S OF DISTRESS NOTED. NO COMPLAIN OF PAIN OR DISCOMFORT AT THIS TIME. WITH SURGICAL WOUND ON RIGHT SHOULDER COVERED WITH DRESSING, DRY AND INTACT. NO IV ACCESS AT THIS TIME. SAFETY MEASURES ENSURED WITH BED IN LOWEST AND LOCKED POSITION, SIDE RAILS RAISED X2. CALL LIGHT WITHIN REACH. WILL CONTINUE TO MONITOR PATIENT.
--- NOTE | 2021-06-13 07:31 | NUR ---
MS RN CLOSING NOTE PATIENT ALERT/ORIENTED X 2-3 THROUGHOUT SHIFT, PT ABLE TO MAKE NEEDS KNOWN. PT STABLE ON RA, NO S/S OF DISTRESS OR SOB NOTED, BREATHING EVEN AND UNLABORED. PATIENT HAS NO IV ACCESS AT THIS TIME, ATTEMPTED MULTIPLE TIMES TO REINSERT NEW IV BUT WAS UNSUCCESSFUL, ONLY HALF DOSE OF ANCEF 0500 GIVEN. MEDICATIONS GIVEN ORDERED, PT NEEDS MET THROUGHOUT SHIFT. PATIENT BLOOD SUGAR THIS AM WAS 140, NO INSULIN COVERAGE GIVEN BECAUSE PATIENT HAS BEEN HYPOGLYCEMIC AND IVF D5 1/2 NS CURRENTLY NOT RUNNING BECAUSE NO IV ACCESS, PT STATED SHE DIDN'T WANT A SNACK OR JUICE AT THIS TIME. SPOKE TO DAUGHTER МАРИНА THIS MORNING, PER DAUGHTER THEY WOULD LIKE INFO FOR HOME HEALTH AND WALKER, ENDORSED TO DAY SHIFT NURSE TO CONTACT HEALTHCARE MARKET CONSULTANT. SAFETY MEASURES IN PLACE: CALL LIGHT WITHIN REACH, SIDE RAILS UP X 2, BED LOCKED IN LOW POSITION, BED ALARM ON, ENDORSED TO DAY SHIFT NURSE FOR CONTINUITY OF CARE
[2021-06-13 07:51] LABS: CALCIUM, SERUM 7.5 mg/dL (8.5-10.1); CARBON DIOXIDE 25 mmol/L (21-32); CHLORIDE 109 mmol/L (98-107); CREATININE 1.4 mg/dL (0.6-1.3); GLUCOSE 153 mg/dL (74-106); MAGNESIUM 1.8 mg/dL (1.8-2.4); PHOSPHORUS 2.8 mg/dL (2.5-4.9); POTASSIUM 3.3 mmol/L (3.5-5.1); SODIUM SERUM 140 mmol/L (136-145); UREA NITROGEN, BLOOD 29 mg/dL (7-18)
--- NOTE | 2021-06-13 08:06 | NUR ---
RN NOTES IV ACCESS INSERTED ON LFA G#24, RESUMED IVF ORDERED.
[2021-06-13] MEDS: GLUCERNA SHAKE 237 ML CAN PO SCH ×2 (08:22→16:50)
[2021-06-13] MEDS: ENOXAPARIN SODIUM 40 MG/0.4 ML DISP.SYRIN SQ SCH (08:23)
[2021-06-13] MEDS: FLUTICASONE/VILANTEROL 1 EACH BLST.W.DEV IH SCH (08:23)
[2021-06-13] MEDS: CARVEDILOL 6.25 MG TABLET PO SCH ×2 (08:25→20:56)
[2021-06-13] MEDS: ASPIRIN EC 81 MG TABLET.DR PO SCH (08:26)
[2021-06-13] MEDS: DOCUSATE SODIUM 100 MG CAPSULE PO SCH (08:26)
[2021-06-13] MEDS: GABAPENTIN 300 MG CAPSULE PO SCH ×3 (08:27→17:01)
[2021-06-13] MEDS: LISINOPRIL (20MG) 20 MG TABLET PO SCH (08:28)
[2021-06-13 08:40] VITALS: BP 84/41
[2021-06-13] MEDS: PANTOPRAZOLE 40 MG TABLET.DR PO SCH ×2 (08:53→17:00)
[2021-06-13] MEDS: INSULIN GLARGINE, 100 UNIT/ML CARTRIDGE SQ SCH ×2 (08:57→16:49)
[2021-06-13] MEDS ORDERED: LISI20TA30 PO (09:45)
[2021-06-13] MEDS: POTASSIUM PHOSPHATE MM 7.5 MMOL in IV NS 0.9% 100 ML IV SCH ×2 (09:45→11:46)
[2021-06-13] MEDS ORDERED: POTASSIUM CHLORIDE 20 MEQ TAB.PRT.SR PO ONE (10:00)
[2021-06-13] MEDS ORDERED: IV NS 0.9% 1,000 ML IV ONE (10:00)
[2021-06-13] MEDS: INSULIN REGULAR, HUMAN 100 UNIT/ML 3 ML VIAL SQ PRN ×2 (11:38→16:50)
[2021-06-13] MEDS: SOD FERRIC GLUC 125 MG in IV NS 0.9% 100 ML IV SCH (14:58)
[2021-06-13 16:04] VITALS: BP 171/59
[2021-06-13] MEDS: SIMVASTATIN 20 MG TABLET PO SCH (17:19)
--- NOTE | 2021-06-13 18:31 | NUR ---
MS RN CLOSING NOTES PATIENT ALERT/ORIENTED X 3, STABLE ON RA, NO S/S OF DISTRESS OR SOB NOTED, BREATHING EVEN AND UNLABORED. L FOREARM 24 G IV LINE PATENT AND FLUSHING WELL, SAFETY MEASURES IN PLACE: CALL LIGHT WITHIN REACH, SIDE RAILS UP X 2, BED LOCKED IN LOW POSITION, BED ALARM ON, WILL ENDORSE TO PLASTER TENDER FOR MYA.
--- NOTE | 2021-06-13 19:38 | NUR ---
RN OPENING NOTES RECEIVED PT IN BED, ASLEEP, AWAKENS TO VERBAL STIMULI. AOx3, ABLE TO MAKE NEEDS KNOWN. ON 2LPM PRN AND TOLERATING WELL. NO SOB NOTED. NO S/SX OF RESPIRATORY DISTRESS NOTED. IV ACCESS IN LFA #24G. IV IS INTACT, PATENT, AND FLUSHING WELL. SAFETY PRECAUTIONS IN PLACE: BED IN LOWEST, LOCKED POSITION, SIDERAILS UPx2, AND BRAKES ON. TABLE AND CALL LIGHT WITHIN REACH. WILL CONTINUE TO MONITOR.
[2021-06-13] MEDS: *INSULIN REGULAR(HUMULIN R)HUM 100 UNIT/ML VIAL SQ PRN (21:33)
[2021-06-14 03:42] VITALS: BP 120/87
[2021-06-14] MEDS: ANCEF 1 GM/50 ML D5W IV SCH ×2 (04:37→12:22)
[2021-06-14] MEDS: BLOOD SUGAR DIAGNOSTIC 1 EACH STRIP IN SCH ×3 (07:01→16:32)
--- NOTE | 2021-06-14 07:27 | NUR ---
RN CLOSING NOTES PT IN BED, ASLEEP, AWAKENS TO VERBAL STIMULI. AOx4, ABLE TO MAKE NEEDS KNOWN. ON 2LPM PRN AND TOLERATING WELL. NO SOB NOTED. NO S/SX OF RESPIRATORY DISTRESS NOTED. IV ACCESS IN LFA #24G. IV IS INTACT, PATENT, AND FLUSHING WELL. ALL NEEDS MET. PT KEPT CLEAN AND DRY. SAFETY PRECAUTIONS IN PLACE: BED IN LOWEST, LOCKED POSITION, SIDERAILS UPx2, AND BRAKES ON. TABLE AND CALL LIGHT WITHIN REACH. WILL ENDORSE TO ONCOMING SHIFT FOR MYA.
[2021-06-14 07:52] LABS: BASOPHILS % (AUTO) 0.6 % (0.0-2.0); EOSINOPHILS % (AUTO) 4.3 % (0.0-6.0); HEMATOCRIT 26 % (33-45); HEMOGLOBIN 8.8 g/dL (11.5-14.8); LYMPHOCYTES # (AUTO) 1.7 K/uL (0.8-4.8); LYMPHOCYTES % (AUTO) 21.1 % (20.0-44.0); MEAN CORPUSCULAR HGB CONC 34 g/dl (31.0-36.0); MEAN CORPUSCULAR VOLUME 98 fL (82-100); MONOCYTES # (AUTO) 0.8 K/uL (0.1-1.30); MONOCYTES % (AUTO) 9.6 % (2.0-12.0); NEUTROPHILS % (AUTO) 64.4 % (43.0-81.0); PLATELET COUNT (AUTO) 147 K/uL (150-450); RED BLOOD CELL COUNT(AUTO) 2.69 MIL/uL (4.0-5.2); WHITE BLOOD COUNT (AUTO) 7.8 K/uL (4.3-11.0)
[2021-06-14 08:52] VITALS: BP 166/64
[2021-06-14 09:00] LABS: CALCIUM, SERUM 7.8 mg/dL (8.5-10.1); MAGNESIUM 1.9 mg/dL (1.8-2.4)
[2021-06-14] MEDS ORDERED: LISINOPRIL (20MG) 20 MG TABLET PO SCH (09:00)
[2021-06-14] MEDS: GLUCERNA SHAKE 237 ML CAN PO SCH ×2 (09:17→16:12)
[2021-06-14] MEDS: FLUTICASONE/VILANTEROL 1 EACH BLST.W.DEV IH SCH (09:18)
[2021-06-14] MEDS: ASPIRIN EC 81 MG TABLET.DR PO SCH (09:23)
[2021-06-14] MEDS: GABAPENTIN 300 MG CAPSULE PO SCH ×3 (09:24→16:14)
[2021-06-14] MEDS: DOCUSATE SODIUM 100 MG CAPSULE PO SCH (09:24)
[2021-06-14 09:25] VITALS: BP 166/64
[2021-06-14] MEDS: PANTOPRAZOLE 40 MG TABLET.DR PO SCH ×2 (09:25→16:14)
[2021-06-14] MEDS: CARVEDILOL 6.25 MG TABLET PO SCH (09:25)
[2021-06-14] MEDS: INSULIN GLARGINE, 100 UNIT/ML CARTRIDGE SQ SCH ×2 (09:31→16:29)
[2021-06-14] MEDS: ENOXAPARIN SODIUM 40 MG/0.4 ML DISP.SYRIN SQ SCH (09:31)
[2021-06-14] MEDS ORDERED: FERR325T23 PO (12:07)
[2021-06-14] MEDS ORDERED: LEVO500T90 PO (12:07)
[2021-06-14] MEDS: INSULIN REGULAR, HUMAN 100 UNIT/ML 3 ML VIAL SQ PRN (13:50)
[2021-06-14] MEDS ORDERED: SOD FERRIC GLUC 125 MG in IV NS 0.9% 100 ML IV SCH (14:00)
[2021-06-14] MEDS: SIMVASTATIN 20 MG TABLET PO SCH (17:07)
--- NOTE | 2021-06-14 18:20 | NUR ---
MS FOOD ASSEMBLER COMMISSARY KITCHEN NOTES PATIENT WAS SEEN BY DR. LEE AND ORDERED PATIENT FOR DISCHARGE TO HOME WITH HOME HEALTH. DISCHARGE INSTRUCTIONS AND EDUCATION PROVIDED TO PATIENT AND EXPLAINED MEDICATIONS AND PRESCRIPTIONS. PATIENT VERBALIZED UNDERSTANDING. DISCHARGE FORM AND BELONGINGS LIST FORM SIGNED. NAME WRIST BAND AND IV LINE REMOVED. ACCOMPANIED PATIENT TO THE LOBBY VIA WHEELCHAIR WITH THE DAUGHTER AND LEFT IN STABLE CONDITION VIA PRIVATE CAR. MD AND CHARGE NURSE ARE AWARE OF THE DISCHARGE.
== END 2021-06-14 18:00 | disposition home health service (06) | DRG 483 ==
LOC: ER 13:23 → TRANSITION 18:07 → TELE 21:21 → MED 06-10 17:15
PROVIDERS: ADMIT Internal Medicine; ATTEND Registered Nurse
PROC: 0RRJ00Z Replacement of Right Shoulder Joint with Reverse Ball and Socket Synthetic Substitute, Open Approach (ICD-10-PCS; principal; 2021-06-09)
PROC: 0LS30ZZ Reposition Right Upper Arm Tendon, Open Approach (ICD-10-PCS; 2021-06-09)
PROC: 0PSC04Z Reposition Right Humeral Head with Internal Fixation Device, Open Approach (ICD-10-PCS; 2021-06-09)
DX: S42.201A Unspecified fracture of upper end of right humerus, initial encounter for closed fracture (principal); I21.A1 Myocardial infarction type 2; I50.32 Chronic diastolic (congestive) heart failure; W18.30XA Fall on same level, unspecified, initial encounter; Z20.822 Contact with and (suspected) exposure to COVID-19; E11.65 Type 2 diabetes mellitus with hyperglycemia; Y92.59 Other trade areas as the place of occurrence of the external cause; S43.031A Inferior subluxation of right humerus, initial encounter; I11.0 Hypertensive heart disease with heart failure; J45.909 Unspecified asthma, uncomplicated; M19.90 Unspecified osteoarthritis, unspecified site; E11.42 Type 2 diabetes mellitus with diabetic polyneuropathy; Z79.82 Long term (current) use of aspirin; Z79.51 Long term (current) use of inhaled steroids; Z79.4 Long term (current) use of insulin; Z79.899 Other long term (current) drug therapy; E78.5 Hyperlipidemia, unspecified; D69.6 Thrombocytopenia, unspecified; D64.9 Anemia, unspecified; E04.1 Nontoxic single thyroid nodule; I70.0 Atherosclerosis of aorta; S80.212A Abrasion, left knee, initial encounter; S42.141A Displaced fracture of glenoid cavity of scapula, right shoulder, initial encounter for closed fracture; S42.134A Nondisplaced fracture of coracoid process, right shoulder, initial encounter for closed fracture
CPT/HCPCS: 36415; 70450-TC; 71045-TC; 73020; 73030-TC; 73060-TC; 73070-TC; 73200-TC; 73560-TC; 80048-TC; 80053-TC; 80076-TC; 81001; 82728-TC; 82962-TC; 83540-TC; 83605-TC; 83735-TC; 83880; 84100-TC; 84155; 84165; 84439-TC; 84443-TC; 84484-TC; 85025-TC; 85730-TC; 86850-TC; 87040-TC; 87081-TC; 88305-TC; 88311-TC; 93307-TC; 97110-TC; 97116-TC; 97530-TC; A4217; A4565; A6209; C1713; C1776; C9803; G0378; J0360; J0690; J0696; J1100; J1170; J1650; J1815; J1885; J2270; J2405; J2704; J2916; J3010; J3370; J3475; J3490; J7030; J7060